=== PATIENT | female | born 1945 | race Caucasian/White ===

== ENCOUNTER 2017-09-19 08:37 | Day surgery (SDC) | payer MEDICARE ==
[2017-09-17 08:54] VITALS: BMI 22.7
[~2017-09-19 08:37] MED LIST: DEXAMETHASONE SOD PHOSPHATE 10 MG/ML 1 ML VIAL IV ONE; LACTATED RINGERS 1,000 ML IV SCH; LIDOCAINE 1% 20 ML VIAL (10MG/ML) FOR IV START INTRADERMA PRN; MOXIFLOXACIN HCL 0.5% DROPS 3 ML BTL OP ONE; TETRACAINE 0.5% OPHTH (PF) DROPS 4 ML BTL OP ONE; TIMOLOL 0.5% OPHTH DROPS 5 ML BTL OP ONE
[2017-09-19] MEDS ORDERED: LACTATED RINGERS 1,000 ML IV ONE (09:39)
[2017-09-19] MEDS: CYCLOPENTOLATE 1% OPHTH SOLN 2 ML BTL OP ONE ×3 (09:40→09:52)
[2017-09-19] MEDS: PHENYLEPHRINE 2.5% OPHTH DRP 2ML OP NR ×3 (09:43→09:55)
[2017-09-19 09:45] VITALS: TEMP 98.6
[2017-09-19] MEDS ORDERED: fentaNYL (PF) 50 MCG/ML 2 ML AMP ONE (10:56)
[2017-09-19] MEDS ORDERED: EPINEPHrine (PF) 0.3 ML in BALANCED SALT IRRIG SOLN COMB2 500 ML IRRIGATION ONE (10:56)
[2017-09-19] MEDS ORDERED: MIDAZOLAM 2 MG/2 ML VIAL ONE (10:56)
[2017-09-19] MEDS ORDERED: LIDOCAINE 1% (PF) 10MG/ML VIAL MISCELLANE ONE (11:04)
[2017-09-19] MEDS ORDERED: HYALURONATE SODIUM INTRAOCULAR 1 EACH SYRINGE (12MG/ML) INTRAOCULA ONE (11:04)
[2017-09-19] MEDS ORDERED: BALANCED SALT IRRIG SOLN COMB2 15 ML IRRIG.SOLN IRRIGATION ONE (11:04)
--- NOTE | 2017-09-19 11:16 | P.OP ---
Date of Procedure: 09/19/17 Preoperative Diagnosis: NS Postoperative Diagnosis: same Procedure(s) Performed: PIOL, OS Anesthesia: MAC Surgeon: Samir Potter Estimated Blood Loss (ml): 0 Pathology: none sent Condition: stable Indications for Procedure: blurry vision Operative Findings: No complications
[2017-09-19 11:33] VITALS: RESP 18
[2017-09-19 12:04] VITALS: BP 143/80; PULSE 63
--- NOTE | 2017-09-19 21:58 | OP ---
OPERATIVE REPORT DATE OF SURGERY: 09/19/17 SURGEON: Dr. Samir Potter. BEHAVIOUR SUPPORT TEACHER:: PREOPERATIVE DIAGNOSES:: Nuclear sclerosis. POSTOPERATIVE DIAGNOSES:: Nuclear sclerosis. OPERATION:: Clear cornea phacoemulsification of cataract left OS eye. ESTIMATED BLOOD LOSS:: Zero. SPECIMEN TAKEN:: None. NARRATIVE:: After obtaining the appropriate consent, the patient was brought to the Operating Room where the patient was placed under cardiac monitoring and prepped and draped in the usual sterile manner. At the 5 o'clock position a 15 degree super sharp blade was used to create a paracentesis followed by instillation of 1% Xylocaine MPF 50:50 mix with BSS into the anterior chamber. This was followed by Amvisc to stabilize the anterior chamber. At the 3 o'clock position a self-sealing corneal flap incision was created using 2.8 mm javi keratome. A cystatome was used to initiate a continuous tear capsulorrhexis which was completed with the Utrata forceps. A Binkhorst cannula was used to hydrodissect the lens nucleus followed by hydrodelineation. Phacoemulsification of the lens was performed utilizing phacochop in 22.40 Seconds at 13% power. The remaining cortical material was removed using the irrigation aspiration mode followed by additional 1% Xylocaine MPF into the anterior chamber followed by viscoelastic to stabilize the capsular bag. An MAMTA PCB 0 0 22.5 diopters posterior chamber lens was placed into the capsular bag without difficulty. The remaining viscoelastic material was removed from the anterior chamber with the irrigation/aspiration. Balanced salt solution was used to normalize the intraocular pressure. The incision was checked for watertight integrity. The patient then received two drops of 0.5% timolol followed by two drops Vigamox, was lightly patched and shielded in the usual manner. There were no complications from the procedure. The patient tolerated the procedure well and was returned to recovery in good condition. MMODL / IJN: [id number] /
== END 2017-09-19 12:21 | disposition home or self-care (01) ==
LOC: OR 08:37
PROVIDERS: ATTEND Ophthalmology
DX: H25.12 Age-related nuclear cataract, left eye (principal); H35.3122 Nonexudative age-related macular degeneration, left eye, intermediate dry stage; H52.13 Myopia, bilateral; H52.4 Presbyopia; H00.026 Hordeolum internum left eye, unspecified eyelid; H00.023 Hordeolum internum right eye, unspecified eyelid; J45.909 Unspecified asthma, uncomplicated; I10 Essential (primary) hypertension; E78.5 Hyperlipidemia, unspecified; K21.9 Gastro-esophageal reflux disease without esophagitis; Z79.899 Other long term (current) drug therapy; Z88.2 Allergy status to sulfonamides; Z87.891 Personal history of nicotine dependence
CPT/HCPCS: 66984; C1780; J2250; J0171; J3010; J2001

== ENCOUNTER 2017-10-10 08:50 | Day surgery (SDC) | payer MEDICARE ==
[2017-10-04 11:03] VITALS: BMI 22.7
[~2017-10-10 08:50] MED LIST changes: -DEXAMETHASONE SOD PHOSPHATE 10 MG/ML 1 ML VIAL IV ONE; +MIDAZOLAM 2 MG/2 ML VIAL IV PRN
[2017-10-10] MEDS: CYCLOPENTOLATE 1% OPHTH SOLN 2 ML BTL OP ONE ×3 (11:08→11:21)
[2017-10-10 11:10] VITALS: RESP 16; TEMP 97.8
[2017-10-10] MEDS: PHENYLEPHRINE 2.5% OPHTH DRP 2ML OP NR ×3 (11:11→11:38)
[2017-10-10] MEDS ORDERED: MIDAZOLAM 2 MG/2 ML VIAL ONE (12:25)
[2017-10-10] MEDS ORDERED: fentaNYL (PF) 50 MCG/ML 2 ML AMP ONE (12:25)
[2017-10-10] MEDS ORDERED: TIMOLOL 0.5% OPHTH SOLN (PF) 0.2 ML DROPERETTE RIGHT EYE ONE (12:33)
[2017-10-10] MEDS ORDERED: BALANCED SALT IRRIG SOLN COMB2 15 ML IRRIG.SOLN INTRAOCULA ONE (12:33)
[2017-10-10] MEDS ORDERED: DUOVISC KIT (GREEN BOX) INTRAOCULA ONE (12:33)
[2017-10-10] MEDS ORDERED: HYALURONATE SODIUM INTRAOCULAR 1 EACH SYRINGE (12MG/ML) INTRAOCULA ONE (12:33)
[2017-10-10] MEDS ORDERED: MOXIFLOXACIN HCL 0.5% DROPS 3 ML BTL RIGHT EYE ONE (12:34)
[2017-10-10] MEDS ORDERED: LIDOCAINE 1% (PF) 10MG/ML VIAL MISCELLANE ONE (12:35)
[2017-10-10] MEDS ORDERED: EPINEPHrine (PF) 0.3 ML in BALANCED SALT IRRIG SOLN COMB2 500 ML IRRIGATION ONE (12:42)
[2017-10-10 13:39] VITALS: BP 147/77; PULSE 58
--- NOTE | 2017-10-10 18:34 | P.OP ---
Date of Procedure: 10/10/17 Preoperative Diagnosis: NS Postoperative Diagnosis: same Procedure(s) Performed: PIOL, OD Implants: PCB00 22.00 Anesthesia: MAC Surgeon: Samir Potter Estimated Blood Loss (ml): 0 Pathology: none sent Condition: stable Disposition: same day Indications for Procedure: blurry vision Operative Findings: No complications
--- NOTE | 2017-10-10 19:44 | OP ---
OPERATIVE REPORT DATE OF SURGERY: 10/10/2017 PREOPERATIVE DIAGNOSIS:: Nuclear sclerosis. POSTOPERATIVE DIAGNOSIS:: Nuclear sclerosis. OPERATION:: Phacoemulsification of cataract and intraocular lens implant of the right eye. ESTIMATED BLOOD LOSS:: Zero. SPECIMEN TAKEN:: None. NARRATIVE:: After obtaining the appropriate consent, the patient was brought to the operating room, where the patient was placed under cardiac monitoring and prepped and draped in the usual sterile manner. At the 11 o'clock position a 15-degree super sharp blade was used to create a paracentesis followed by instillation of 1% Xylocaine MPF 50:50 mix with BSS into the anterior chamber. This was followed by Amvisc to stabilize the anterior chamber. At the 9 o'clock position a self-sealing corneal flap incision was created using 2.8 mm javi keratome. A cystotome was used to initiate a continuous tear capsulorrhexis which was completed with the Utrata forceps. A Binkhorst cannula was used to hydrodissect the lens nucleus followed by hydrodelineation. Phacoemulsification of the lens was performed utilizing phacochop in 27.62 seconds at 14% power. The remaining cortical material was removed using the irrigation aspiration mode followed by additional 1% Xylocaine MPF into the anterior chamber followed by viscoelastic to stabilize the capsular bag. An MAMTA PCB00 22.5 diopters posterior chamber lens was placed into the capsular bag without difficulty. The remaining viscoelastic material was removed from the anterior chamber with the irrigation/aspiration. Balanced salt solution was used to normalize the intraocular pressure. The incision was checked for watertight integrity. The patient then received two drops of 0.5% timolol followed by two drops Vigamox, was lightly patched and shielded in the usual manner. There were no complications from the procedure. The patient tolerated the procedure well and was returned to recovery in good condition. MMODL / IJN: [id number] /
== END 2017-10-10 13:51 | disposition home or self-care (01) ==
LOC: OR 08:50
PROVIDERS: ATTEND Ophthalmology
DX: H25.11 Age-related nuclear cataract, right eye (principal); H35.3122 Nonexudative age-related macular degeneration, left eye, intermediate dry stage; H52.4 Presbyopia; H00.023 Hordeolum internum right eye, unspecified eyelid; H00.026 Hordeolum internum left eye, unspecified eyelid; H52.13 Myopia, bilateral; Z96.1 Presence of intraocular lens; I10 Essential (primary) hypertension; J45.909 Unspecified asthma, uncomplicated; E78.5 Hyperlipidemia, unspecified; Z87.891 Personal history of nicotine dependence; K21.9 Gastro-esophageal reflux disease without esophagitis; Z79.899 Other long term (current) drug therapy; Z88.2 Allergy status to sulfonamides
CPT/HCPCS: 84132; 66984; C1780; J2250; J0171; J3010; J2001

== ENCOUNTER → 2018-11-26 | Outpatient (CLI) | payer MEDICARE ==
--- NOTE | 2018-11-26 13:46 | CT ---
EXAMINATION TYPE: CT sinus wo con DATE OF EXAM: 11/26/2018 COMPARISON: None HISTORY: Sinus infections x [address] DLP: 583.7 mGycm. Automated Exposure Control for Dose Reduction was Utilized. TECHNIQUE: CT scan of the sinuses is performed without contrast, axial images are obtained, coronal r eformatted images are also reviewed. FINDINGS: The paranasal sinuses including the frontal, ethmoid, sphenoid, and maxillary sinuses bila terally are well-aerated without abnormal opacification. There is mild mucosal disease present within the maxillary sinuses, postop change is present in the bilateral maxillary sinus status post antrost omies. Visualized portion of mastoid air cells show no abnormal opacification. The globes are intact bilate rally. Cerebral vascular calcifications noted incidentally. There is mild cortical atrophy. IMPRESSION: Postop changes. Mild mucosal disease present in the maxillary sinuses.
== END | disposition home or self-care (01) ==
LOC: RADCTMAIN 12:28
PROVIDERS: ATTEND Otolaryngology
DX: J32.0 Chronic maxillary sinusitis (principal)
CPT/HCPCS: 70486

== ENCOUNTER 2019-01-13 08:41 | Day surgery (SDC) | payer MEDICARE ==
[2019-01-08 10:55] VITALS: BMI 22.9
--- NOTE | 2019-01-13 00:40 | HP ---
HISTORY AND PHYSICAL CHIEF COMPLAINT: Chronic laryngitis and lesion of the left true vocal cord. HISTORY OF PRESENT ILLNESS: This patient is a pleasant 73-year-old female who was recently seen in my office complaining of having chronic laryngitis and subsequently she was found to have GERD, (gastroesophageal reflux disorder). At the time of her office visit, clinical examination of the larynx indirect laryngoscopy revealed evidence of a growth on the left true vocal cord. The patient states that she quit smoking approximately 20 years ago and has not used any tobacco products since then. Because of the quality of her voice and concern about the lesion on the left vocal cord, it was recommended that she undergo a suspension microlaryngoscopy with biopsy and possible laser lesion of the left true vocal cord under general anesthesia. PAST MEDICAL HISTORY: She has: ALLERGIES: TO SULFA. MEDICATIONS: Her current medications include lisinopril/hydrochlorothiazide, Atorvastatin, oxybutynin, PreserVision and Protonix. PREVIOUS SURGERIES: Include endoscopic sinus surgery. REVIEW OF SYSTEMS: Cardiovascular is positive for hypertension. RESPIRATORY: Negative. GASTROINTESTINAL: Positive for GERD (gastroesophageal reflux disorder), and the metabolic endocrine system is positive for hypercholesterolemia. Special senses are positive for early macular degeneration. The remainder of the review of systems is essentially unremarkable. PHYSICAL EXAMINATION: This patient is a pleasant 73-year-old female who was alert and cooperative. HEENT examination: Patient is normocephalic. Tympanic membranes are normal. Middle ear spaces are free of any fluid or infection. Pupils equal, round, react like accommodation. Extraocular movements within normal limits. Intranasal examination reveals moderate to severe septal deviation with compensatory hypertrophy of the inferior turbinates and a moderate amount of mucus on the mucous membranes draining down the posterior pharynx. Examination of the oropharynx is unremarkable. Examination of the larynx is as described above in the history of present illness and will not be repeated. Cranial nerves 2 through 12 and the remainder of the head and neck exam are within normal limits. Chest/cardiovascular: Both lung allen are clear to percussion and auscultation. The patient is in regular sinus rhythm. S1, S2 are present without evidence of any murmurs S3s or S4. Peripheral pulses are bilaterally symmetrical. Abdomen is no evidence any masses, megaly, or tenderness. ABDOMEN: Soft. Skin is unremarkable. Musculoskeletal and neurological are within normal limits. Pelvic and rectal exam is deferred at this time as the patient has this done on a regular basis at her family physician's office. The remainder of physical exam is unremarkable. IMPRESSION: Chronic laryngitis with left laryngeal lesion. PLAN: The patient is scheduled undergo a suspension microlaryngoscopy with biopsy and possible laser of left true vocal cord lesion under general anesthesia. Attention RNs in the pre-surgical area: I have not ordered any pre-surgical prophylactic antibiotics for this patient. If the pharmacy department sends any pre- surgical prophylactic antibiotics to the pre-surgical area for this patient, that order should be cancelled and it should be returned to the pharmacy department. Please make sure that the patient's account is credited appropriately. I have ordered for this patient to receive 1000 mg of Ofirmev IV to be given once an intravenous line has been established. I have discussed the risks, benefits and alternative therapies for the above-mentioned procedure and for both sedation/analgesia as well as necessary blood product administration, if indicated, as they pertain to this patient. The patient has indicated his or her understanding and acceptance of the risks and procedures discussed. MMBELINDAL / IJN: [id number] /
[~2019-01-13 08:41] MED LIST changes: +DEXAMETHASONE SOD PHOSPHATE 10 MG/ML 1 ML VIAL IV ONE; -MOXIFLOXACIN HCL 0.5% DROPS 3 ML BTL OP ONE; +ONDANSETRON 4 MG/2 ML VIAL IVP ONE; +Pre Op ABX Message 1 EACH MISC MISCELLANE ONE; -TETRACAINE 0.5% OPHTH (PF) DROPS 4 ML BTL OP ONE; -TIMOLOL 0.5% OPHTH DROPS 5 ML BTL OP ONE; +fentaNYL (PF) 50 MCG/ML 2 ML AMP IV PRN
[2019-01-13] MEDS ORDERED: LACTATED RINGERS 1,000 ML IV ONE ×2 (09:21→12:19)
[2019-01-13] MEDS ORDERED: ACETAMINOPHEN IV (For NPO) 1,000 MG in EMPTY BAG 1 BAG IVPB ONE (09:45)
[2019-01-13] MEDS ORDERED: DEXAMETHASONE SOD PHOS (MDV) 100 MG/10 ML VIAL ONE (10:42)
[2019-01-13] MEDS ORDERED: LIDOCAINE 1% INJ 10MG/ML (20 ML MDV) ONE (10:42)
[2019-01-13] MEDS ORDERED: ePHEDrine SULFATE/0.9% NACL/PF 50 MG/5 ML SYRINGE IV ONE (10:42)
[2019-01-13] MEDS ORDERED: NALOXONE 0.4 MG/ML 1 ML VIAL ONE (10:42)
[2019-01-13] MEDS ORDERED: SUCCINYLCHOLINE CHLORIDE 100 MG/5 ML SYR IV ONE (10:42)
[2019-01-13] MEDS ORDERED: MIDAZOLAM 2 MG/2 ML VIAL ONE (10:42)
[2019-01-13] MEDS ORDERED: fentaNYL (PF) 50 MCG/ML 2 ML AMP ONE (10:42)
[2019-01-13] MEDS ORDERED: PROPOFOL 10 MG/ML 20 ML VIAL IV ONE (10:42)
[2019-01-13 11:38] VITALS: TEMP 97
[2019-01-13 12:52] VITALS: PULSE 75
[2019-01-13 13:13] VITALS: BP 126/67; RESP 16
--- NOTE | 2019-01-13 21:53 | OP ---
OPERATIVE REPORT DATE OF SURGERY: 01/13/2019 PREOPERATIVE DIAGNOSIS: Lesion of the left true vocal cord. Final pathology is pending. POSTOPERATIVE DIAGNOSIS: Lesion of the left true vocal cord. Final pathology is pending. ANESTHESIA: General. OPERATIVE PROCEDURE: Suspension microlaryngoscopy with biopsy of lesion of the left true vocal cord and CO2 laser vaporization of lesion of the left true vocal cord. SURGEON: Dr. Sanjeev Alvarez. COMPLICATIONS: None. ESTIMATED BLOOD LOSS: Less than 1 mL. DESCRIPTION OF OPERATIVE PROCEDURE: The patient was placed on the operating table in supine position and after uneventful induction and endotracheal intubation, satisfactory general anesthesia was obtained. Next the patient was draped in usual and customary fashion. Following draping, the laryngoscope was introduced into the patient's oropharynx and the entire hypopharynx, including the right and left piriform sinus, valleculae, base of tongue and epiglottis, were inspected and found to be free of any suspicious lesions. Next the tip of the laryngoscope was introduced into the laryngeal introitus. The Lewy apparatus was then attached to the handle of the laryngoscope and the laryngoscope was suspended on the patient's chest. Next, using the Zeiss operating microscope and under direct magnified visualization, inspection of the vocal cords revealed a lesion on the posterior third of the left true vocal cord. Next, using a pair of up-biting microlaryngeal forceps, a biopsy specimen was obtained in the usual fashion and was sent to Pathology in formalin for permanent sectioning. The remaining portion of this lesion was then vaporized using the wand of the CO2 laser set at approximately 5 [place] continuous. The patient was given 10 mg of Decadron intraoperatively to reduce any postoperative laryngeal edema. At this point, the procedure was terminated. There were no intraoperative complications. The patient tolerated the procedure well and was returned to the recovery room in satisfactory condition. Final pathology is pending. MMODL / IJN: [id number] /
== END 2019-01-13 13:23 | disposition home or self-care (01) ==
LOC: OR 08:41
PROVIDERS: ATTEND Otolaryngology
DX: J38.1 Polyp of vocal cord and larynx (principal); J38.3 Other diseases of vocal cords; J37.0 Chronic laryngitis; K21.9 Gastro-esophageal reflux disease without esophagitis; Z87.891 Personal history of nicotine dependence; Z79.899 Other long term (current) drug therapy; Z88.2 Allergy status to sulfonamides; I10 Essential (primary) hypertension; E78.5 Hyperlipidemia, unspecified; Z98.890 Other specified postprocedural states
CPT/HCPCS: 88305; 31536; 31599; J2250; J1100 ×2; J2310; J2405; J2001; J3010; J0131; J0330; J2704

== ENCOUNTER → 2022-01-31 | Outpatient (CLI) | payer MEDICARE ==
--- NOTE | 2022-01-31 11:18 | XR ---
EXAMINATION TYPE: XR chest 2V DATE OF EXAM: 01/31/2022 11:13 AM COMPARISON: Chest radiographs from 04/03/2010. TECHNIQUE: XR chest 2V Frontal and lateral views of the chest. CLINICAL INDICATION:Female, 76 years old with history of [id number]; FINDINGS: Lungs/Pleura: There is no evidence of pleural effusion, focal consolidation, or pneumothorax. Pulmonary vascularity: Unremarkable. Heart/mediastinum: Cardiomediastinal silhouette is unremarkable. Atherosclerotic calcifications are seen in the aorta. Musculoskeletal: No acute osseous pathology. IMPRESSION: No acute cardiopulmonary disease/process.
[2022-01-31 11:20] LABS: Appearance,Urine Clear (Clear); Bilirubin,Urine Negative (Negative); Blood,Urine Negative (Negative); Color,Urine Colorless; Glucose,Urine (UA) Negative (Negative); Ketones,Urine Negative (Negative); Leukocyte Esterase,Urine Large (Negative); Nitrite,Urine Negative (Negative); PH, Urine 5.5 (5.0-8.0); Protein,Urine Negative (Negative); Specific Gravity,Urine 1.004 (1.001-1.035); Urobilinogen,Urine <2.0 mg/dL (<2.0); WBC,Urine 18 /hpf (0-5)
[2022-01-31 11:31] LABS: INR 0.9 (<1.2); Prothrombin Time 10.3 sec (9.0-12.0)
[2022-01-31 16:16] LABS: HCT 36.4 % (37.2-46.3); MCH 30.8 pg (27.0-32.0); MCV 93.6 fL (80.0-97.0); Mean Platelet Volume 10.2 fL (9.5-12.2); NRBC Per 100 WBC 0 /100 WBCS (0.0-0.0); Platelet Count 263 X 10*3/uL (140-440); RBC 3.89 X 10*6/uL (4.10-5.20); RDW 12.3 % (11.5-14.5); WBC 7.51 X 10*3/uL (4.50-10.00)
[2022-01-31 16:26] LABS: African American GFR (CKD) 99.2 (60.0-200.0); Albumin 4.5 g/dL (3.8-4.9); Albumin/Globulin Ratio 1.92 (1.60-3.17); Anion Gap 11.7 mmol/L (10.00-18.00); BUN/Creat Ratio 20.03 Ratio (12.00-20.00); Blood Urea Nitrogen 13.6 mg/dL (9.0-27.0); Calcium 9.7 mg/dL (8.7-10.3); Carbon Dioxide 27.7 mmol/L (20.0-27.5); Globulin 2.4 g/dL (1.6-3.3); Non-African American GFR(CKD) 85.6 (60.0-200.0); Total Bilirubin 0.3 mg/dL (0.30-1.20); Total Protein 6.9 g/dL (6.2-8.2)
== END | disposition home or self-care (01) ==
LOC: LABPAT 10:37
PROVIDERS: ATTEND Orthopaedic Surgery Orthopaedic Surgery of the Spine
DX: Z01.818 Encounter for other preprocedural examination (principal); M50.222 Other cervical disc displacement at C5-C6 level; M48.02 Spinal stenosis, cervical region
CPT/HCPCS: 71046; 80053; 81001; 85027; 85610; 85730; 93005

== ENCOUNTER → 2022-02-13 | Outpatient (CLI) | payer MEDICARE ==
[2022-02-13 23:00] LABS: Appearance,Urine Clear (Clear); Bilirubin,Urine Negative (Negative); Blood,Urine Negative (Negative); Color,Urine Yellow (Yellow); Ketones,Urine Negative (Negative); Nitrite,Urine Negative (Negative); Specific Gravity,Urine 1.005 (1.001-1.030); Urobilinogen,Urine 0.2 (0.2,1.0)
[2022-02-13 23:10] LABS: Bacteria,Urine None Seen /HPF (None Seen)
== END | disposition home or self-care (01) ==
LOC: LABPAT 11:29
PROVIDERS: ATTEND Orthopaedic Surgery Orthopaedic Surgery of the Spine
DX: Z01.812 Encounter for preprocedural laboratory examination (principal); N39.0 Urinary tract infection, site not specified
CPT/HCPCS: 81001

== ENCOUNTER 2022-02-22 12:50 | Day surgery (SDC) | payer MEDICARE ==
[~2022-02-22 12:50] MED LIST changes: -DEXAMETHASONE SOD PHOSPHATE 10 MG/ML 1 ML VIAL IV ONE; +DEXAMETHASONE SOD PHOSPHATE 4 MG/ML 1 ML VIAL IV ONE; -LACTATED RINGERS 1,000 ML IV SCH; -LIDOCAINE 1% 20 ML VIAL (10MG/ML) FOR IV START INTRADERMA PRN; -MIDAZOLAM 2 MG/2 ML VIAL IV PRN; -Pre Op ABX Message 1 EACH MISC MISCELLANE ONE; +ceFAZolin 1,000 MG in SODIUM CHLORIDE 0.9% IRRIGATIO 1,000 ML IRRIGATION PRN; -fentaNYL (PF) 50 MCG/ML 2 ML AMP IV PRN
[2022-02-22] MEDS: LACTATED RINGERS 1,000 ML IV SCH (13:35)
[2022-02-22] MEDS ORDERED: LIDOCAINE 1% (10MG/ML) FOR IV START INTRADERMA ONE (13:35)
[2022-02-22] MEDS ORDERED: PROPOFOL 10 MG/ML 20 ML VIAL IV ONE (13:51)
[2022-02-22] MEDS ORDERED: LIDOCAINE 2% INJ 20 MG/ML (2 ML VIAL) ONE (13:51)
[2022-02-22] MEDS ORDERED: MIDAZOLAM 2 MG/2 ML VIAL ONE (13:51)
[2022-02-22] MEDS ORDERED: SUCCINYLCHOLINE CHLORIDE 200 MG/10 ML VIAL IV ONE (13:51)
[2022-02-22] MEDS ORDERED: fentaNYL (PF) 50 MCG/ML 2 ML AMP ONE (13:51)
[2022-02-22] MEDS ORDERED: HYDROmorphone (PF) 1 MG/ML ONE (13:51)
[2022-02-22] MEDS ORDERED: THROMBIN (BOVINE) 5,000 UNIT VIAL MISCELLANE ONE (14:21)
[2022-02-22] MEDS ORDERED: GELATIN SPONGE,ABSORB (LARGE) 1 EACH SPONGE MISCELLANE ONE (14:21)
[2022-02-22] MEDS ORDERED: LIDOCAINE 1%-EPI 1:100,000 20 ML VIAL SQ ONE (14:22)
[2022-02-22] MEDS ORDERED: BUPIVACAINE (PF) 0.25% 30 ML VIAL SQ ONE (14:22)
--- NOTE | 2022-02-22 14:59 | XR ---
EXAMINATION TYPE: XR cervical spine 1V DATE OF EXAM: 02/22/2022 COMPARISON: None HISTORY: Cervical fusion TECHNIQUE: Crosstable lateral cervical spine FINDINGS: Patient is intubated. Metallic device is directed towards cervical spine disc level which a ppears to be C5-6. IMPRESSION: 1. Intraoperative Localization of a lower cervical disc level
[2022-02-22] MEDS ORDERED: ONDANSETRON 4 MG/2 ML VIAL IVP PRN ×2 (15:47→22:38)
[2022-02-22] MEDS ORDERED: BENZOCAINE/MENTHOL LOZENG 1 EACH LOZENGE MUCOUS MEM PRN (15:47)
[2022-02-22] MEDS ORDERED: HYDROcodone/APAP 5-325MG 1 EACH TAB PO PRN ×2 (15:47)
[2022-02-22] MEDS ORDERED: CYCLOBENZAPRINE 5 MG TAB PO PRN (15:47)
--- NOTE | 2022-02-22 15:50 | XR ---
EXAMINATION TYPE: XR cervical spine 1V DATE OF EXAM: 02/22/2022 COMPARISON: Earlier exam HISTORY: Anterior cervical fusion TECHNIQUE: Lateral cervical spine FINDINGS: Anterior cervical fusion of C5-C7 appears to be present. Patient is intubated. IMPRESSION: 1. Status post anterior cervical fusion lower cervical spine
[2022-02-22] MEDS ORDERED: GABAPENTIN 100 MG CAP PO PRN (15:58)
[2022-02-22] MEDS ORDERED: ACETAMINOPHEN TAB 500 MG TAB PO PRN (15:58)
[2022-02-22] MEDS: HYDROmorphone 0.5 MG/0.5 ML SYRINGE IVP PRN ×3 (15:59→23:12)
--- NOTE | 2022-02-22 16:10 | P.OP ---
Date of Procedure: 02/22/22 Preoperative Diagnosis: Cervical stenosis C5 6 C6 7, herniated nucleus pulposis C5 6 C6 7, upper extremity radiculopathy, upper extremity weakness, neck pain, degenerative disc disease Postoperative Diagnosis: Same Anesthesia: GETA Pathology: none sent Condition: stable Disposition: PACU Description of Procedure: BRIEF OPERATIVE NOTE Preoperative Diagnosis:Cervical stenosis C5 6 C6 7, herniated nucleus pulposis C5 6 C6 7, upper extremity radiculopathy, upper extremity weakness, neck pain, degenerative disc disease Postoperative Diagnosis:Cervical stenosis C5 6 C6 7, herniated nucleus pulposis C5 6 C6 7, upper extremity radiculopathy, upper extremity weakness, neck pain, degenerative disc disease Procedure: Anterior cervical decompression with discectomy and fusion C5 6 C6 7 Placement of interbody graft C5 6 C6 7 Application of anterior cervical plate C5 6 C6 7 Surgeon: Dr. Soriano Wire Communications Engineer: Galen Thomas is present throughout the entire the case persistence during positioning, dissection, exposure, visualization, and all crucial elements of the case as well as closure. Anesthesia: General anesthesia per Dr. Dr. Moran Estimated blood loss: Approximately 50 mL Complications: None apparent Components implanted: K2M [place] anterior cervical plate system with screws measuring 14 mm and Vikos interbody allograft bone graft with 1 mL of DBX bone putty Disposition: To recovery room in good stable condition. OPERATIVE INDICATIONS The patient has had long-standing issues in their neck and upper extremities. She is having severe pain at her neck with upper extremity radiculopathy and weakness. These symptoms correlated well with her imaging which showed severe changes at her cervical spine with large osteophytic spurring disc degeneration and evidence of stenosis with disc herniation at C5 6 and C6 7 The patient has been through conservative treatment. We discussed various treatment options including surgery, and the patient wishes to proceed with surgery We discussed the risk, patient's alternatives and benefits of surgery including but not limited to, risk of bleeding risk of infection, risk of need for further surgery, risk of decreased, loss of motion, muscle function, malunion nonunion, hardware failure, nerve damage, paralysis, heart attack, and . OPERATIVE SUMMARY After discussing all the risks, patient alternatives and benefits at length, the patient elected to proceed with surgical intervention, signed informed consent, and presented for their procedure. The patient was seen and examined in the preoperative holding area and the surgical site was marked. The patient was given antibiotics and brought to the operating room. The patient was positioned on the operating room table in a supine position being careful to pad any bony prominences and pressure points. The patient was sedated and intubated by anesthesia in standard fashion. Once the airway and C- spine were stabilized the patient's arms were padded and tucked at her side, with her shoulders gently taped. The head was placed in a donut pad with the neck in good neutral alignment and position. We were careful to maintain the patient's cervical spine and good neutral alignment and position throughout. The patient was prepped and draped in a normal standard fashion. An appropriate timeout and keystone protocol performed. We were able to proceed with the surgery. The local wound area was infiltrated with local anesthetic. An incision was made transversely approximately 2-1/2 cm over the appropriate levels at C6. Dissection was taken down subcutaneously to the level of the platysma which was split in line with its fibers. Dissection was taken with a carotid approach, with the trachea and esophagus medial and the carotid sheath laterally. We dissected down to the anterior surface of the vertebral bodies. Intraoperative x-ray was taken which showed a marker at the appropriate level at C5 6. With the appropriate level positively confirmed, we were able to proceed with discectomy at the appropriate levels. All of the operative levels were exposed appropriately. The patient had all their twitches back, and there was no evidence of recurrent laryngeal issue. The wound was copiously irrigated and suctioned dry as had been done periodically throughout the case. I had to remove large anterior cervical osteophytes at both levels. At the appropriate level/levels of C5 6 and C6 7, I established an annulotomy with an 11 blade scalpel. This was done first at C6 7 and at C5 6. A discectomy was performed with a combination of pituitary rongeurs, curettes, a high-speed bur, and Kerrison rongeurs. The posterior longitudinal ligament was taken down as were any posterior osteophytes. This gave good central and bilateral foraminal decompression. There is no evidence of any dural tear or leak. The endplates were prepared with a high-speed bur. With the endplates in good parallel position, I was able to size for the appropriate size interbody graft. The wound was irrigated and suctioned dry the graft was prepared and malleted into position. It had good alignment and position with the anterior surface flush with the anterior surface of the vertebral bodies. This was done similarly the appropriate levels first at C6 7 and then at C5 6. With the grafts intact, I was able to measure and contour and appropriate sized plate. The plate was positioned at the midline over the appropriate levels at C5 6 and 7. Screw holes were established with a hand drill and drill guide. Screws were placed in good alignment and position with excellent bony purchase. They were seated under the locking device. The construct was checked and found to be stable. Intraoperative x-ray was taken which showed good alignment and position of the implants at the appropriate levels. There was no evidence of any dural tear or leak. Good hemostasis was maintained. The wound was copiously irrigated and suctioned dry as had been done periodically throughout the case. The platysma was closed with absorbable suture. The subcutaneous tissue was closed. The subcuticular tissue was closed with absorbable suture. The wound was cleaned and dried and dressed appropriately. A soft cervical collar was placed appropriately. The patient was woken up by anesthesia, extubated, transferred back gently to their hospital bed and brought to the recovery room in good stable condition. The patient will be admitted to the hospital for appropriate postoperative care, medical management and monitoring. We will continue to follow them closely about the postoperative course.
[2022-02-22] MEDS ORDERED: LACTATED RINGERS 1,000 ML IV ONE (16:26)
[2022-02-22] MEDS ORDERED: HYDROmorphone 0.5 MG/0.5 ML SYRINGE IVP ONE (16:41)
[2022-02-22] MEDS: cycloSPORINE 0.05% OPHTH 0.4 ML DROPERETTE BOTH EYES SCH (20:49)
[2022-02-22] MEDS: VIT A,C & E-LUTEIN-MINERALS 1 EACH TAB PO SCH (20:49)
[2022-02-22] MEDS ORDERED: TRIMETHOBENZAMIDE 100 MG/ML 2 ML VIAL IM PRN (20:57)
[2022-02-23] MEDS: SODIUM CHLORIDE 0.9% 1,000 ML IV SCH ×2 (04:11→07:52)
[2022-02-23] MEDS: HYDROmorphone 0.5 MG/0.5 ML SYRINGE IVP PRN (05:44)
[2022-02-23] MEDS: LACTATED RINGERS 1,000 ML IV SCH (07:52)
[2022-02-23 08:46] VITALS: BP 147/70; PULSE 69; RESP 18; TEMP 98
[2022-02-23] MEDS: VIT A,C & E-LUTEIN-MINERALS 1 EACH TAB PO SCH (08:51)
[2022-02-23] MEDS: cycloSPORINE 0.05% OPHTH 0.4 ML DROPERETTE BOTH EYES SCH (08:53)
[2022-02-23] MEDS ORDERED: OXYBUTYNIN 15 MG TAB.ER.24 PO SCH (09:00)
[2022-02-23] MEDS ORDERED: CALCIUM CARB-VIT D 500 MG-5 MCG TAB PO SCH (09:00)
[2022-02-23] MEDS ORDERED: ATORVASTATIN 10 MG TAB PO SCH (09:00)
[2022-02-23] MEDS ORDERED: NON FORMULARY DRUG (Fish Oil/Dha/Epa [Fish Oil 1,200 Mg Fish Oil] 1 EACH Capsule) PO SCH (09:00)
[2022-02-23] MEDS ORDERED: PANTOPRAZOLE 40 MG TABLET PO SCH (09:00)
[2022-02-23] MEDS ORDERED: LISINOPRIL-HCTZ 10-12.5 MG 1 EACH TAB PO SCH (09:00)
--- NOTE | 2022-02-23 09:12 | P.DS ---
Providers Date of admission: 02/22/22 Attending physician: Brandon Soriano Consults: 02/22/22 15:47 Consult Physician Routine Consulting Provider: Laya Florentino Consult Reason/Comments: medical management Do you want consulting provider notified?: Yes [facility] Course: The patient presented on the day of admission as per their operative note. She underwent anterior cervical decompression with discectomy and fusion C5 6 C6 7 for her cervical stenosis with disc herniation degenerative disc disease neck pain and upper extremity radiculopathy yesterday as per her operative note. She feels like her neck is doing somewhat better but still has pain at the back and neck. She is having some trouble with nausea overnight but she feels it is improving this morning. She has been able to be mobile and she is voiding freely. Physical Exam The incision site is clean dry and intact. There is no erythema no drainage. There is no purulence no evidence of infection. Her neck is soft and supple. There is no drainage. She has some tenderness posteriorly along her trapezium but her motion is good at her neck. Abdomen soft and nontender. Chest has good excursion with deep inspiration and expiration. The patient has active and passive range of motion intact at the upper and lower extremities. There is no acute change in neurologic status. Hospital Course Postoperative day #1 status post anterior cervical decompression with discectomy and fusion C5 6 C6 7 for her cervical stenosis with herniated nucleus pulposis degenerative disc disease and upper extremity radiculopathy. Nations symptoms from her cervical spine seem to be improving. The patient has been making good progress postoperatively. She still has some pain at the base of the back of her neck which is expected and was present prior to her surgery. I think this will continue to improve as she heals. They have completed the prophylactic antibiotics without any signs or symptoms of infection. The patient has been able to advance their diet this morning but she did have some nausea overnight. The pain was initially controlled with IV medications and is now controlled appropriately with oral medications. The patient has been able to increase their mobilization. The patient has progressed appropriately. I think they are in good stable condition for discharge today if she is able to tolerate her soft diet today. They will be sent home with appropriate prescriptions. I answered their questions to the best of my ability in a language that they can understand and they are agreeable with the plan. They will follow up as directed in approximately 2 weeks or sooner if she is having problems. Patient Condition at Discharge: Good Plan - Discharge Summary Discharge Rx Participant: No New Discharge Prescriptions: No Action Oxybutynin Chloride 15 mg PO DAILY Atorvastatin [Lipitor] 10 mg PO DAILY Vit C/E/Zn/Coppr/Lutein/Zeaxan [Preservision Areds 2 Softgel] 2 each PO BID Lisinopril-Hctz 10-12.5 mg [Zestoretic 10-12.5] 1 tab PO QAM Fish Oil/Dha/Epa [Fish Oil 1,200 mg Fish Oil] 1 each PO DAILY Calcium Carbonate/Vitamin D3 [Calcium 600-Vit D3 400 Caplet] 1 tab PO DAILY Pantoprazole [Protonix] 40 mg PO DAILY Gabapentin [Neurontin] 100 mg PO BID PRN PRN Reason: Pain Acetaminophen [Tylenol Extra Strength] 500 mg PO Q6H PRN PRN Reason: Pain cycloSPORINE 0.05% OPHTH SOLN [Restasis] 1 applicator BOTH EYES Q12H Discharge Medication List Atorvastatin [Lipitor] 10 mg PO DAILY 09/17/17 [History] Calcium Carbonate/Vitamin D3 [Calcium 600-Vit D3 400 Caplet] 1 tab PO DAILY 09/17/17 [History] Fish Oil/Dha/Epa [Fish Oil 1,200 mg Fish Oil] 1 each PO DAILY 09/17/17 [History] Lisinopril-Hctz 10-12.5 mg [Zestoretic 10-12.5] 1 tab PO QAM 09/17/17 [History] Oxybutynin Chloride 15 mg PO DAILY 09/17/17 [History] Vit C/E/Zn/Coppr/Lutein/Zeaxan [Preservision Areds 2 Softgel] 2 each PO BID 09/17/17 [History] Acetaminophen [Tylenol Extra Strength] 500 mg PO Q6H PRN 02/20/22 [History] Gabapentin [Neurontin] 100 mg PO BID PRN 02/20/22 [History] Pantoprazole [Protonix] 40 mg PO DAILY 02/20/22 [History] cycloSPORINE 0.05% OPHTH SOLN [Restasis] 1 applicator BOTH EYES Q12H 02/20/22 [History]
--- NOTE | 2022-02-23 22:41 | P.CONS ---
History of Present Illness - Reason for Consult Consult date: 02/23/22 Medical management - Chief Complaint Status post anterior cervical decompression and fusion surgery. - History of Present Illness Patient is a 76-year-old female with a known history of hypertension, hyperlipidemia, osteoarthritis, GERD and history of skin cancer and left upper extremity pain and tingling sensation in the fingers and prior history of smoking was admitted to the hospital for elective cervical decompression and fusion surgery. Patient doing Status post ACDF C5-C6 and C6-C7 and anterior cervical plate. Postoperative day 1. Patient states that her tingling sensation in the upper extremities is better after surgery. Still complains of neck pain but is able to move without difficulty. No complaints of weakness. No chest pain or shortness of breath. No cough or sputum production. No headache or dizziness or lightheadedness. No fever no chills. Postoperatively blood pressure is elevated. Medicine service was consulted for medical management. Review of Systems Constitutional: Patient denies any fever or chills . no Generalized weakness. Abdomen: Patient denied any nausea or vomiting or abd. pain Cardiovascular: Patient denies any chest pain or short of breath no palpitations. Respiratory: patient denied any cough . no sputum production. No shortness of breath Neurologic: Patient denied any numbness or tingling headache. Musculoskeletal: Patient denies any complaints of joint swelling or deformity. Neck pain and tingling sensation in the hands. Skin: Negative Psychiatric: Negative Endocrine: No heat or cold intolerance. No recent weight gain. Genitourinary: No dysuria or hematuria. All other 14 point ROS negative except the above Past Medical History Past Medical History: Cancer, GERD/Reflux, Hyperlipidemia, Hypertension, Musculoskeletal Disorder, Osteoarthritis (OA) Additional Past Medical History / Comment(s): hx. skin cancer, pain goes down left arm, fingers tingling, urinary incontinence History of Any Multi-Drug Resistant Organisms: None Reported Additional Past Surgical History / Comment(s): SINUS SX, aletha cataracts, polyp removed from throat,. EGD. COLONOSCOPY Past Anesthesia/Blood Transfusion Reactions: No Reported Reaction Past Psychological History: No Psychological Hx Reported Smoking Status: Former smoker Past Alcohol Use History: None Reported Additional Past Alcohol Use History / Comment(s): QUIT SMOKING 1997,smoked approx 30 yrs 1ppd Past Drug Use History: None Reported - Past Family History Mother Family Medical History: No Reported History Medications and Allergies Home Medications Medication Instructions Recorded Confirmed Type Atorvastatin [Lipitor] 10 mg PO DAILY 09/17/17 02/20/22 History Calcium Carbonate/Vitamin D3 1 tab PO DAILY 09/17/17 02/20/22 History [Calcium 600-Vit D3 400 Caplet] Fish Oil/Dha/Epa [Fish Oil 1,200 1 each PO DAILY 09/17/17 02/20/22 History mg Fish Oil] Lisinopril-Hctz 10-12.5 mg 1 tab PO QAM 09/17/17 02/20/22 History [Zestoretic 10-12.5] Oxybutynin Chloride 15 mg PO DAILY 09/17/17 02/20/22 History Vit C/E/Zn/Coppr/Lutein/Zeaxan 2 each PO BID 09/17/17 02/20/22 History [Preservision Areds 2 Softgel] Acetaminophen [Tylenol Extra 500 mg PO Q6H PRN 02/20/22 02/22/22 History Strength] Gabapentin [Neurontin] 100 mg PO BID PRN 02/20/22 02/22/22 History Pantoprazole [Protonix] 40 mg PO DAILY 02/20/22 02/20/22 History cycloSPORINE 0.05% OPHTH SOLN 1 applicator BOTH EYES Q12H 02/20/22 02/22/22 History [Restasis] HYDROcodone/APAP 5-325MG [Nettie 1 tab PO Q6HR PRN #28 tab 02/23/22 Rx 5-325] Allergies Allergy/AdvReac Type Severity Reaction Status Date / Time Sulfa (Sulfonamide Allergy Rash/Hives Verified 02/22/22 13:07 Antibiotics) Physical Exam Vitals: Vital Signs Temp Pulse Resp BP BP Pulse Ox 02/23/22 07:43 98.0 F 69 18 147/70 97 02/23/22 02:00 97.8 F 67 17 136/78 96 02/22/22 19:31 65 157/81 92 L 02/22/22 19:16 60 149/77 92 L 02/22/22 19:01 59 L 143/76 91 L 02/22/22 18:52 65 153/77 91 L 02/22/22 18:31 61 150/75 92 L 02/22/22 18:16 61 149/81 90 L 02/22/22 18:03 96 172/68 89 L 02/22/22 17:46 57 L 143/79 98 02/22/22 17:35 97.4 F L 60 20 148/71 99 02/22/22 17:03 64 16 147/63 98 02/22/22 16:48 62 16 147/65 96 02/22/22 16:33 67 16 147/74 98 02/22/22 16:18 68 16 147/74 99 02/22/22 16:03 76 14 162/78 95 02/22/22 15:48 97 F L 83 15 168/96 99 02/22/22 13:22 98.3 F 64 16 145/65 98 Intake and Output 02/22/22 02/23/22 02/23/22 22:59 06:59 14:59 Intake Total 600 Output Total 50 Balance 550 Intake: IV 600 Output: Estimated Blood Loss 50 Other: # Voids 0 2 Weight 62.1 kg PHYSICAL EXAMINATION: Patient is lying in the bed comfortably, no acute distress, awake alert and oriented.. HEENT: Normocephalic. Neck is supple. Pupils reactive. Nostrils clear. Oral cavity is moist. Neck reveals no JVD, carotid bruits, or thyromegaly. Cervical collar in place. CHEST EXAMINATION: Trachea is central. Symmetrical expansion. Lung allen clear to auscultation and percussion. CARDIAC: Normal S1, S2 with no gallops. No murmurs ABDOMEN: Soft. Bowel sounds present. Nontender. No organomegaly. No abdominal bruits. Extremities: reveal no edema. No clubbing or cyanosis Neurologically awake, alert, oriented x3 with well-coordinated movements. No focal deficits noted Skin: No rash or skin lesions. Psychiatric: Coperative. Nonsuicidal, Musculoskeletal: No joint swelling or deformity. Normal range of motion. Assessment and Plan Assessment: Status post ACDF C5-C6 and C6-C7 with anterior cervical plate. Postop day 1 Uncontrolled hypertension. Likely due to pain. Started back on home blood pressure medications lisinopril/hydrochlorothiazide. Hyperlipidemia GERD History of skin cancer Osteoarthritis Prior history of smoking DVT prophylaxis with SCDs Plan: Continue with home blood pressure medications and titrate dose as needed. Encou rage incentive spirometry and bowel regimen abdominal pain medications. Follow- up laboratory data. Further recommendations based on the clinical course. Thank you for your consult. Time with Patient: Greater than 30
== END 2022-02-23 14:18 | disposition home or self-care (01) ==
LOC: OR 12:50 → 4SSUR 15:48 → OR 02-23 14:18
PROVIDERS: ATTEND Orthopaedic Surgery Orthopaedic Surgery of the Spine
DX: M50.122 Cervical disc disorder at C5-C6 level with radiculopathy (principal); M48.02 Spinal stenosis, cervical region; M25.78 Osteophyte, vertebrae; I10 Essential (primary) hypertension; E78.5 Hyperlipidemia, unspecified; Z97.3 Presence of spectacles and contact lenses; Z82.49 Family history of ischemic heart disease and other diseases of the circulatory system; Z83.3 Family history of diabetes mellitus; Z87.891 Personal history of nicotine dependence
CPT/HCPCS: 72020; 22845; 20930; 22551; 22552; C1713 ×2; C1762 ×2; J3250; J0690 ×3; J2405; J1170 ×2

== ENCOUNTER → 2022-07-10 | Outpatient (CLI) | payer MEDICARE ==
[2022-07-10 13:25] VITALS: BP 139/82; PULSE 78; RESP 18; TEMP 98.1
--- NOTE | 2022-07-10 14:21 | P.PAINPG ---
PQRS Measure Charge Sheet Comment: A 77 yr old female with a history of severe and chronic LBP x yrs secondary to lumbar DDD and spondylosis with facet arthropathy without myelopathy, R Sacroiliitis presents today for R SI injection. Pain level is provoked at 1 /10 in intensity, constant, localized in the lumbar spine, achy in character w sh ooting towards the R groin and R hip. Pain is provoked by twisting. Pain is alleviated with indications, injections, heat, PT 5 sessions which she is currently an, massage therapy integrated with PT, home stretching regimen, repositioning and rest. Interventional pain procedures completed include R SI injection Patient is currently on Tyl Patient denies any side effects of the medication(s), denies excessive drowsiness or sleepiness, denies suicidal ideation and reports that the current pain medication is helping to control the pain and improve activities of daily living. Patient denies any motor or sensory deficits. Patient denies any fever or night sweats, denies any change in the bowel movements or urination. Physical Examination: -Constitutional: Cooperative. Not in acute distress . - Neurologic: Cranial nerve II to XII intact. No focal neurological deficits. - Psychatric: Alert & oriented x 3. Matching mood & appropriate affect. Judgment and insight intact. - Musculoskeletal: Cervical spine: Muscle bulk/ tone/ strength in the bilateral upper extremities normal Vertebral body tenderness to palpation over Spurling test positive Distraction test positive Facet loading test positive TTP Thoracic spine Muscle bulk / tone/ strength in the bilateral paraspinal muscles normal Vertebral body tender to palpation over Facet loading test positive TTP Lumbar spine: Motor bulk/ tone/ strength lower extremities , thigh and legs : 5/5 Deep tendon reflexes : Normal Knee Jerk. Normal Ankle Jerk . Vertebral body tenderness to palpation over Lumbar Facet Loading Test positive Straight Leg Raise: positive at 30 degrees right side/ left side Gaenslen's Test positive Sacral spine : Severe tenderness over the Sacroiliac joint: right side / left side Range of motion: Flexion of the lumbar spine <60 degrees Range of motion: Extension of the lumbar spine <20 degrees Gaenslen's Test positive right side / left side Meena test: positive right side / left side Thigh Thrust Test positive right side / left side Sacral Thrust Test positive right side / left side Assessment and plan: Chronic LBP secondary to lumbar DDD, spondylosis with facet arthropathy without myelopathy Pt exhibited sufficient and substantial pain relief w R SI injection. May manage residual pain at home and may return to clinic on an as needed basis. Risks, benefits of procedure discussed and pt verbalized understanding. All questions answered. I have spent less than 30 minutes on patient care today. Dr Curtis was available by phone for the evaluation of this patient. The time was used to review the medical records including relevant urine studies and Prescription history (MAPs), review of the available imaging, evaluation and examination of the patient, coordination of care with the medical staff and if applicable referring physicians, as well as creation of the medical record PQRS Narrative: Smoking Status Former smoker Home Medications: Ambulatory Orders Atorvastatin [Lipitor] 10 mg PO DAILY 09/17/17 Lisinopril-Hctz 10-12.5 mg [Zestoretic 10-12.5] 1 tab PO DAILY 09/17/17 Vit C/E/Zn/Coppr/Lutein/Zeaxan [Preservision Areds 2 Softgel] 2 each PO BID 09/17/17 Pantoprazole [Protonix] 40 mg PO DAILY 02/20/22 Cequa 0.09% Eye Drops 1 drop BOTH EYES BID 06/15/22 Horatio-3/Dha/Epa/Fish Oil [Fish Oil 1,000 mg Softgel] 1 cap PO DAILY 06/15/22 Oxybutynin ER [Ditropan Xl] 10 mg PO DAILY 06/15/22 traMADol HCL 25 mg PO Q6H 3 Days #6 tab 06/20/22 Controlled Substance Measures - Controlled Substance Measures Is patient prescribed a controlled substance at discharge?: No
== END ==
LOC: PNWHC3 11:00
PROVIDERS: ATTEND Specialist
DX: M47.816 Spondylosis without myelopathy or radiculopathy, lumbar region (principal); M51.36 Other intervertebral disc degeneration, lumbar region; G89.29 Other chronic pain; Z87.891 Personal history of nicotine dependence; Z88.2 Allergy status to sulfonamides; M46.1 Sacroiliitis, not elsewhere classified
CPT/HCPCS: 99211

== ENCOUNTER 2024-03-14 13:43 | Day surgery (SDC) | payer MEDICARE ==
[2024-03-13 10:38] VITALS: BMI 26.5
[2024-03-14] MEDS: IV FLUID CONTINUATION 1,000 ML IV ONE (14:13)
[2024-03-14 14:15] VITALS: TEMP 98.6
[2024-03-14] MEDS: LACTATED RINGERS 1,000 ML IV SCH (14:23)
[2024-03-14] MEDS: ONDANSETRON 4 MG/2 ML VIAL IVP STA (14:26)
[2024-03-14] MEDS ORDERED: PROPOFOL 10 MG/ML 20 ML VIAL IV ONE (15:09)
[2024-03-14] MEDS ORDERED: LIDOCAINE 1% INJ 10MG/ML (20 ML MDV) ONE (15:09)
--- NOTE | 2024-03-14 15:37 | P.PCN ---
Date of Procedure: 03/14/24 Procedure(s) Performed: BRIEF HISTORY: Patient is a 78-year-old pleasant white female scheduled for an elective colonoscopy as a part of evaluation of recent episode of acute colitis that was diagnosed 2 weeks ago when she presented with lower abdominal pain and rectal bleeding and was admitted to [facility] for 10 days. She was treated with antibiotics and her symptoms resolved. She had a hemoglobin of 9.8 g/dL. Presently doing well except chronic constipation. No further bleeding. PROCEDURE PERFORMED: Colonoscopy. PREOPERATIVE DIAGNOSIS: Recent episode of acute severe colitis for which she was hospitalized 2 weeks ago. IV sedation per Anesthesia. PROCEDURE: After informed consent was obtained, the patient, was brought into the endoscopy unit. IV sedation was administered by Anesthesia under continuous monitoring. Digital rectal examination was normal. Initially the Olympus CF-160 flexible video colonoscope was then inserted in the rectum, gradually advanced into the cecum without any difficulty. Careful examination was performed as the scope was gradually being withdrawn. Ileocecal valve and the appendiceal orifice were visualized and appeared normal. Prep was excellent. Mucosa of the cecum, ascending colon, transverse colon, descending colon, sigmoid colon, and rectum appeared normal. Retroflexion was performed in the rectum and no lesions were seen. The patient tolerated the procedure well. IMPRESSION: Normal-appearing colon from rectum to cecum no evidence of colitis or colorectal neoplasia. RECOMMENDATIONS: Findings of this examination were discussed with the patient as well as her family. She was advised to be on a high-fiber diet take fiber rubio pplements on a regular basis and use MiraLAX as needed..
[2024-03-14 15:45] VITALS: PULSE 71; RESP 16
[2024-03-14 15:55] VITALS: BP 147/78
== END 2024-03-14 16:21 | disposition home or self-care (01) ==
LOC: ORWHC2ENDO 13:43
PROVIDERS: ATTEND Internal Medicine Gastroenterology
DX: K62.5 Hemorrhage of anus and rectum (principal); K52.9 Noninfective gastroenteritis and colitis, unspecified; K21.9 Gastro-esophageal reflux disease without esophagitis; I10 Essential (primary) hypertension; E78.5 Hyperlipidemia, unspecified; Z88.2 Allergy status to sulfonamides; Z79.02 Long term (current) use of antithrombotics/antiplatelets; Z79.899 Other long term (current) drug therapy
CPT/HCPCS: 45378; J2405